=== PATIENT | male | born 1995 | race Native Hawaiian/Other Pacific Islander ===

== ENCOUNTER → 2021-11-29 11:22 | Outpatient (CLI) | payer OTHER, SELFPAY ==
[2021-11-29 11:54] LABS: COVID19 -Nasal RAPID Negative (Negative)
== END ==
PROVIDERS: Referring Provider Podiatrist; Visit Provider Podiatrist
DX: Z20.822 Contact with and (suspected) exposure to COVID-19 (principal)
CPT/HCPCS: 87635; C9803

== ENCOUNTER 2021-11-30 10:11 | Day surgery (SDC) | payer OTHER, SELFPAY ==
[2021-11-30] VITALS (7 sets, daily range): BP systolic 113–140; BP diastolic 53–82; PULSE 87–103; RESP 12–18; TEMP 36.3–36.8; O2SAT 97–100; BMI 24.5
[2021-11-30] MEDS: LACTATED RINGERS 1,000 ML 100 ML IV (11:09)
--- NOTE | 2021-11-30 13:01 | SUR.PREOP ---
Block start time [1300] . Monitoring initiated and maintained throughout procedure. Oxygen and medications given per anesthesiologist instructions. Patient remained stable throughout procedure, no adverse reactions noted. Pre-procedure BP 142/97, HR 83; oxygen Block end time 1310.
--- NOTE | 2021-11-30 13:10 | PM.PREOP ---
Pre-operative Note COVID-19 COVID-19 status: Negative Result date/Date tested (Pos, Neg/Pending): 11/29/21 Interval Note History & Physical reviewed/Exam performed by Physician: Yes Changes to H&P: No
--- NOTE | 2021-11-30 13:16 | P.OP_ITS ---
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 Conservative measures failed to alleviate his pain and he wished to have surgical intervention. I am. We spoke of the risks, potential complications, alternatives, and expected outcomes. Consent was signed, no contraindication to the procedures at this time. Surgeon: Brii Vasquez Click Yes if Unassisted: Yes Anesthesia Type: General and Peripheral nerve block Operative Notes Closure Type: primary Specimen(s): none sent Prosthetic devices, grafts, tissues, transplants, or devices: [employer] Speed Bridge anchor system Applied: other (Posterior splint, well padded and appropriately aligned along the foot and ankle, right.) Estimated Blood Loss (mL): 20 Blood products transfused: none Tourniquet time (min): 46 Procedure in detail: After a lower extremity block was performed by Anesthesia in the preoperative holding area the patient was brought to the operating room. On the gurney, general anesthesia was rendered by the anesthesiologist. Next, the tourniqet was placed on his right thigh. He was carefully transferred and positioned prone onto the operative table, well padded and appropriately aligned. The foot and ankle were prepped and draped in the usual aseptic manner. The tourniquet was inflated to the thigh. After a check of anesthesia incision was made on the posterior aspect of the right calcaneus at the insertion point of the Achilles to the heel. The incision was deepened through subcutaneous tissues being careful to identify and retract all vital neural and vascular structures. All bleeders were cauterized and ligated as necessary. The capsule surrounding the Achilles tendon was gently opened and reflected and the enlarged insertion point of the Achilles tendon was noted. The insertion was divided centrally and Achilles tendon was reflected laterally and medially. This exposed areas of the tendon that were a little thickened. Some of the extraordinarily thickened scarred areas of the t endon distally were also reduced. An osteotome was used to chamfer away the posterior spurring of the calcaneus. This was then gently smoothed with a rasp. Using the MRI as a map, I looked further for the subchondral cyst and although I took off some bone posteriorly, I did not see a large cyst. There was a very small portion more lateral along the zone we suspected it may have been located, which I discovered as a more gapped area in the cancellous bone under the cortical area I gently champfered down, but it was so small that I cannot be certain this was part of it. Aside from the spur which was removed, there were no other areas across the posterior calcaneus that appeared to be weak bone. The area was irrigated with copious amounts of normal sterile saline. Following the technique of the [employer] SpeedBridge. Drill holes were placed proximally on the posterior aspect of the calcaneus medially and laterally. This was then tapped and each anchor was inserted. Once appropriately seated the FiberWire attached to the anchor was brought up through the Achilles tendon at the appropriate location. Next, distally on the calcaneus, another set of 2 holes were drilled in the same manner and tapped. Following the Speed Bridge protocol, under appropriate tension, I threaded each of the 2 sides of the more proximal anchors' suture and this was then placed in each of the holes. Each of these 2 anchors were then seated appropriately and was under good tension. Excess fiber tape was trimmed. 3-0 Vicryl was used to reinforce and repair the remainder of the Achilles tendon and range of motion was available and strong. The area was irrigated once more with normal sterile saline and the tourniquet was deflated. A prompt hyperemic response was seen to the foot and ankle. Ten don capsule was then repaired and subcutaneous closure was performed with Vicryl. Skin was closed with nylon and he was placed in a sterile lightly compressive dressing and posterior splint. He was transferred to the PACU with vital signs stable and vascular status intact. Complications: none Post-operative Condition: stable Disposition: PACU Plan for aftercare: Following a period of postoperative monitoring, the patient will be discharged to home on written and oral postoperative instructions including keeping the dressing dry and intact, no weight bearing on the surgical foot, icing and elevating the foot when seated home. DVT prevention techniques have been reviewed. For the 1st postoperative visit the dressing will be changed and close to the 3rd postoperative week we will likely remove the sutures.
[2021-11-30] MEDS: CEFAZOLIN 2 GM/100 ML PREMIX 100 ML IV (13:38)
[2021-11-30] MEDS: BUPIVACAINE 0.5% (PF) VIAL 30 ML INJ (13:51)
--- NOTE | 2021-11-30 13:56 | SUR.OPER ---
Prone on padded OR bed, head in foam head support, gel chest rolls, gel pad under knees, pillow under lower legs, toes free of pressure, arms secured on padded arm boards at <90 degrees abduction. Safety belt at thigh. Tape over left lower leg secured to bed.
[2021-11-30] MEDS: ONDANSETRON 4 MG/2 ML INJ IV (15:39)
--- NOTE | 2021-11-30 15:45 | SUR.PHASEII ---
Patient appears pale and nauseated. Zofran IV given and second liter of LR started. Patient denies any pain;
--- NOTE | 2021-11-30 16:20 | SUR.PHASEII ---
Dr Borges notified of patient stating that jaw sore, that nausea has cleared after IVF and zofran. Pt states he feels like he has TMJ. MD states that patient ok to go home at this time.
[2021-11-30] MEDS: ACETAMINOPHEN 325 MG TABLET PO ×2 (16:33→16:35)
--- NOTE | 2021-11-30 16:41 | SUR.PHASEII ---
Pt requested muscle relaxant for low back pain. Vistaril IM changed to Vistaril PO per Dr Amezquita.
[2021-11-30] MEDS: hydrOXYzine pamoate 25 MG CAPSULE 50 MG PO (16:45)
--- NOTE | 2021-11-30 16:54 | SUR.PHASEII ---
Dr Amezquita at bedside to see patient prior to DC.
== END 2021-11-30 16:55 | disposition home or self-care (01) ==
PROVIDERS: Referring Provider Podiatrist; Visit Provider Podiatrist
PROC: (CPT 27650; principal; 2021-11-30 11:45)
DX: M76.61 Achilles tendinitis, right leg (principal); M79.671 Pain in right foot
CPT/HCPCS: 27654; 28119; 01480; 64450; C1713; J0330; J0690; J1100; J1885; J2250; J2405; J2704; J3010